=== PATIENT | female | born 1940 | race Caucasian/White ===

== ENCOUNTER → 2023-09-30 15:34 | Outpatient (REF) | payer OTHER, SELFPAY | LOC: PAVMRI 15:34 | PROVIDERS: ATTENDING PHYSICIAN Orthopaedic Surgery; FAMILY PHYSICIAN Family Medicine | DX: M54.16 Radiculopathy, lumbar region (principal) | CPT/HCPCS: 72148 ==

== ENCOUNTER 2024-07-28 20:50 | Inpatient (IN) | payer OTHER, SELFPAY ==
[2024-07-28 16:18] VITALS: BP 116/94
[2024-07-28 17:02] LABS: % Basophils 0.3 % (0-2); % Eosinophils 0.2 % (0-6); % Immature Granulocytes 0.3 % (0-0.5); % Lymphocytes 12.5 % (20.5-51.1); % Monocytes 1.4 % (1.7-9.3); % Neutrophils 85.3 % (42.2-75.2); Absolute Lymphocytes 0.7 10^3/uL (1.2-3.4); Absolute Monocytes 0.1 10^3/uL (0.1-0.6); Hematocrit 39.6 % (37.0-47.0); Hemoglobin 12.8 g/dL (12.0-16.0); Mean Corp Hgb Conc. 32.3 g/dL (33.0-37.0); Mean Corpuscular Hgb 29.8 pg (27.0-31.0); Mean Corpuscular Volume 92.3 fL (81.0-99.0); Mean Platelet Volume 10.7 fL (7.4-10.4); Nucleated Red Blood Cells % 0 %; Platelet Count 206 10^3/uL (130-400); Red Blood Cell Count 4.29 10^6/uL (4.20-5.40); Red Cell Dist. Width 14.1 % (11.5-14.5); White Blood Cell Count 5.9 10^3/uL (4.8-10.8)
[2024-07-28 17:14] LABS: ALT (SGPT) 14 U/L (0-35); AST (SGOT) 23 U/L (14-36); Albumin 4.2 g/dl (3.5-5.0); Alkaline Phosphatase 131 U/L (38-126); Blood Urea Nitrogen 34 mg/dl (7-17); Calcium 9.4 mg/dl (8.4-10.2); Carbon Dioxide 23 mmol/L (22-30); Chloride 112 mmol/L (98-107); Glucose 139 mg/dl (70-99); Potassium 5.6 mmol/L (3.5-5.1); Sodium 142 mmol/L (135-145); Total Bilirubin 0.5 mg/dl (0.2-1.3); Total Protein 6.2 g/dl (6.3-8.2); eGFR 36.87
[2024-07-28 17:24] LABS: NT-proBNP 125 pg/ml; Troponin I 0.031 ng/ml
--- NOTE | 2024-07-28 17:38 | ED.GENMED ---
History of Present Illness
General
Chief Complaint: Swelling
Source: patient
Exam Limitations: none
Time Seen by Provider: 07/28/24 17:17
History of Present Illness
History of Present Illness:
See MDM
Past History
Past History
ED Past Medical History: HTN
ED Past Surgical History: None
Social History
Tobacco: Non-smoker
Alcohol: None
Phy Exam
Physical Exam
Physical Exam:
See MDM
Scores
Heart Failure Risk
Heart Failure Risk Score: Yes
History of Stroke or TIA: No
History of intubation for respiratory distress: No
Heart rate on ED arrival >/= 110: No
SaO2 <90% on arrival on room air: Yes
HR >/=110 during 3min walk test (or too ill to perform test): Yes
ECG has acute ischemic changes: No
Urea >/=12mmol/L (BUN 33.6mg/dL): No
Serum CO2>/=35mmol/L: No
Troponin I or T elevated to [place] Level (0.4mg/dL): No
NT-proBNP >/=5,000ng/L (5,000pg/ml): No
HF Risk Score: 3
Admission Status: HIGH RISK 15.9% Consider SNF treatment or admission to hospital
Course
Orders/Labs/Results
Orders:
Orders
07/28/24 Breakfast
Cholesterol Lowering
At Your Request: Limited Participation
Does patient need a safe tray?: No
Cholesterol Lowering: Sodium, 2 Gram
07/28/24 16:25
EKG [Electrocardiogram (*1)] Urgent
Reason for Study: Shortness of Breath
07/28/24 16:26
EKG- Treatment ONCE
07/28/24 16:41
Complete Blood Count/With Diff Urgent
Comprehensive Metabolic Panel Urgent
NT-proBNP Urgent
Troponin I Urgent
07/28/24 17:38
CR Chest - 2 Views Urgent
Comment:
Reason For Exam: SOB with exertion
07/28/24 18:42
Furosemide [Lasix] 40 mg IV NOW STA
07/28/24 20:04
CT Chest PE Study Urgent
Comment:
Reason For Exam: SOB
07/28/24 20:23
Admit/Transfer Patient As Directed
Co-Sign Provider:
Level of Care: Inpatient admission
Assign to:: Telemetry
Physician / Group: dylany
Diagnosis: Soriano, Hypoxia, EMILE, questonable EARL mass to evaulate
Reason for Telemetry: Other
Other Reason for Telemetry: Soriano, questionable acute HF
Date to Stop Telemetry: 07/30/24
Time to Stop Telemetry: 11:00
Reason for Hospitalization: Soriano, Hypoxia, EMILE, questionable EARL mass to evaluate
Expected length of stay greater than two midnights?: Yes
ELOS- Estimated Length of Stay in days: 3
I certify the patient meets the requirements for IP care: Yes
07/28/24 20:26
Code Status As Directed
Resuscitation Status: Full Code
07/28/24 21:15
Hydrocodone 7.5/APAP 325 [[place] 7.5/325] 1 tablet PO BIDPRN PRN
07/28/24 21:15
HF DIETARY CONSULT Routine
HF EDUCATOR CONSULT Routine
Comment:
Activity As Directed
Activity Level: With Assistance
Intake/ Output As Directed
Frequency: Per unit guidelines
Patient Education As Directed
Type: CHF folder
Comment: give on admission. Document in Interdisciplinary Education record
Sleep Apnea Assessment by RN As Directed
Comment:
Physician Instructions:
Vital Signs As Directed
Frequency: Other
Additional Instructions:: Q12 or per unit guidelines if more frequent.
Weight As Directed
Frequency: Daily
Type of Scale: Standing Scale
Comment: Daily morning weight. If unable to stand, use balanced bed scale.
Weight As Directed
Frequency: Once
Type of Scale: Standing Scale
Comment: Upon Admission. If unable to stand, use balanced bed scale.
Pulse Ox/cont/shift [RESP] Routine
Quantity: 1
Special Instructions: Daily pulse oximetry at rest. If greater than 92% at rest also obtain pulse oximetry
while ambulating as tolerated.
DX Deep Vein Thrombosis Video Routine
07/28/24 22:00
Atorvastatin [Lipitor] 20 mg PO HS
Hydrocodone 7.5/APAP 325 [[place] 7.5/325] 1 tablet PO HS
Loperamide [Imodium] 2 mg PO HS
Pregabalin [Lyrica] 100 mg PO TID
07/29/24 06:00
Echo 2D MMode Color/Doppler IN AM
Reason for Study: heart failure
07/29/24 06:33
Cardiovascular Evaluation IN AM
TSH Reflex To Free T4 IN AM
07/29/24 08:00
Allopurinol [Zyloprim] 100 mg PO BID
Aspirin Low Dose EC [Aspir Low (Enteric Coated)] 81 mg PO DAILY
Hydrochlorothiazide [Oretic] 25 mg PO DAILY
Valsartan [Diovan] 160 mg PO DAILY
07/29/24 18:00
Enoxaparin Sodium [Lovenox] 30 mg SC QPM
07/30/24 06:00
Basic Metabolic Panel IN AM
07/30/24 11:00
DC Protocol for Telemetry ONCE
07/31/24 06:00
Basic Metabolic Panel IN AM
Abnormal Lab Results
07/28/24
16:41
MCHC 32.3 L g/dL
(33.0-37.0)
MPV 10.7 H fL
(7.4-10.4)
Absolute Lymphs (auto) 0.7 L 10^3/uL
(1.2-3.4)
Neutrophils % 85.3 H %
(42.2-75.2)
Lymphocytes % 12.5 L %
(20.5-51.1)
Monocytes % 1.4 L %
(1.7-9.3)
Potassium 5.6 H mmol/L
(3.5-5.1)
Chloride 112 H mmol/L
(98-107)
BUN 34 H mg/dl
(7-17)
Creatinine 1.4 H mg/dL
(0.6-1.0)
Glucose 139 H mg/dl
(70-99)
Alkaline Phosphatase 131 H U/L
(38-126)
Total Protein 6.2 L g/dl
(6.3-8.2)
07/28/24 16:41
07/28/24 16:41
Vital Signs
Initial and Last Documented VS:
Initial Vital Signs
Temp Pulse Resp BP Pulse Ox
98.4 F 82 18 116/94 90
07/28/24 16:18 07/28/24 16:18 07/28/24 16:18 07/28/24 16:18 07/28/24 16:18
Last Documented Vital Signs
Temp Pulse Resp BP Pulse Ox
97.5 F 66 18 141/65 95
07/29/24 11:55 07/29/24 11:55 07/29/24 11:55 07/29/24 11:55 07/29/24 11:55
MDM/Problems Addressed
Differential Diagnosis Includes:
HPI and MDM Narrative:
84-year-old female presenting for evaluation of shortness of breath with exertion. This has been going on for the past several days. She is now noticing edema in both legs. The edema used to come and go throughout the day but now it is constant.
She saw her PCP today and was sent in for evaluation. Patient denies prior cardiac history and states she has never seen a [place] before. The edema is consistent with pitting edema. Lungs appear clear but it is concerning that she is short
of breath with exertion. Will obtain basic blood work including troponin and BNP. Will obtain chest x-ray. Will ultimately discuss case with cardiology and err on the side of admitting given concern for new onset congestive heart failure.
Physical exam
General: Well appearing and non-toxic
HEENT: protecting airway
Neck: appears supple
CV: No evidence of cyanosis. Regular rate and rhythm
Resp: No accessory muscle use. Lungs clear
Abd: Non-distended
Extremities: +2 pitting edema bilateral lower extremities
Neuro: alert
Psych: Normal affect
Skin: Intact
Problems Addressed including Acute and Chronic Conditions affecting care:
1. Lower extremity pitting edema
Acuity: acute
Prognosis: stable
Details: Concern for new onset CHF. Will obtain chest x-ray and start IV Lasix
2. Hyperkalemia
Acuity: acute
Prognosis: stable
Details: Patient given IV Lasix
Updates
Patient mildly hypoxic to 88% on room air. Patient placed on 2 L nasal cannula
6:30 PM radiology called about x-ray findings. Chest x-ray concerning for possible mass in left upper lung field. This was patient. She will need a CT at some point. Regardless, there is cardiomegaly and very mild pulmonary edema. Will start IV
Lasix and admit
Patient incidentally found to have mild hyperkalemia. IV Lasix will help
Differential Diagnosis (but not limited to): New onset congestive heart failure, nephrotic syndrome
Testing considered: Urinalysis
Drug therapy (if applicable): OTC meds, please see d/c instruction regarding Rx drugs
Amount and/or Complexity of Data Reviewed
Clinical info obtained from: Patient
External data reviewed: N/A
Labs I independently reviewed (but not limited to): BNP and troponin normal
Radiology: X-ray independently reviewed: Chest x-ray consistent with cardiomegaly and concern for very mild pulm edema
Pulse Ox: hypoxic
EKG independently reviewed: Sinus rhythm, normal axis, no STEMI
Intermediate Designer: Sinus rhythm
Critical Care: the high probability of a clinically significant, sudden or life threatening deterioration of the cardiovascular system(s) required my full and direct attention, intervention and personal management. The aggregate critical care time
was 33 minutes. This time is in addition to time spent performing reported procedures but includes the following:
[x] Data Review and interpretation
[x] Patient assessment and monitoring of vital signs
[x] Documentation
[x] Medication orders and management
Risk of Complication:
Social Determinants of health: Good social support
Discussed with other providers: Hospitalist
Escalation of Care includes Admit/Obs: Given exertional dyspnea, will start IV Lasix and admit
Occasional wrong word or 'sound a like' substitutions may have occurred due to the inherent limitations of voice recognition software. Read the chart carefully and recognize, using context, where substitutions have occurred.
*Critical Care Note
Total Time (30-74mins, 75-104mins- exclusive of procedures): 33 min
ED Attending Note
-
Portions of this chart may have been created with voice recognition software.� Occasional wrong word or��sound alike� substitutions may have occurred due to the inherent limitations of voice recognition software.
Discharge Plan
Departure
Patient Disposition: Admit
Date of Disposition: 07/28/24
Time of Disposition: 18:42
Admit to: Telemetry
Presentation/result/management discussed w/ accepting MD/DO: Hospitalist
Discharge Problem:
SORIANO (dyspnea on exertion), Cardiomegaly, Acute hyperkalemia
Interventions
Interventions:
*Risk Screen - Suicide Last Done: 07/28/24 16:18
*General Assessment Last Done: 07/28/24 16:18
*Neglect/Abuse Screening Last Done: 07/28/24 21:21
*ED- Fall Risk Assessment Last Done: 07/28/24 21:21
*ED COVID-19 Vaccine History Last Done: 07/28/24 21:38
*Nursing Disposition Last Done: 07/28/24 21:21
ED- Cardiac Assessment Last Done: 07/28/24 18:10
Discharge Date and Time
Discharge Date/Time: 07/28/24 21:22
[2024-07-28 17:58] VITALS: BP 133/50
[2024-07-28 17:59] VITALS: BP 133/50
[2024-07-28] MEDS: LASIX 40 MG IV (19:14)
[2024-07-28 19:15] VITALS: BP 136/51
--- NOTE | 2024-07-28 20:11 | HPS.HSE ---
Addendum entered and electronically signed by Zachary Ceballos MD 07/28/24 21:26:
Hold of CTC with PE protocol due to EMILE
- await Pul and Card eval in AM
- Hold of contrast study for now
Original Note:
Family Physician
-
Family Physician: Haven Lr DO
Chief Complaint
-
swelling of feet, Lt hand and numbness to R fingers
SoB with exertion
History of Present Illness
HPI
84F No prior cardiac history. Has never seen cards beforeseen at ER:
- SOB with exertion for a few days.
- reports swelling of feet, Lt hand and numbness to R fingers
- Noted mild hypoxia at ER requires 2L NC O2
- CXR shows cardiomegaly and rads said possible EARL mass
Medical History
Past Medical History
Past Medical History: Reports None
Past Surgical History: Reports None
Social History
Tobacco: Non-smoker
Alcohol: None
Drug: None
Family History
Family History: Not pertinent
Allergies / Home Medications
Allergies reflects when Allergies were last updated in [facility].
Home Medications with original date entered in [facility]
Allergy/Medication List:
Allergies
Allergy/AdvReac Type Severity Reaction Status Date / Time
codeine Allergy Unknown Verified 07/28/24 16:24
Home Medications
allopurinol 100 mg tablet 100 mg PO BID 07/28/24
aspirin 81 mg tablet,delayed release 81 mg PO DAILY 07/28/24
atorvastatin 20 mg tablet 20 mg PO HS 07/28/24
famotidine 20 mg tablet 20 mg PO DAILY 07/28/24
hydrochlorothiazide 25 mg tablet 25 mg PO DAILY 07/28/24
hydrocodone 7.5 mg-acetaminophen 325 mg tablet 1 tab PO BIDPRN PRN severe pain 07/28/24
hydrocodone 7.5 mg-acetaminophen 325 mg tablet 1 tab PO HS 07/28/24
loperamide 2 mg capsule 2 mg PO HS 07/28/24
pregabalin 100 mg capsule 100 mg PO TID 07/28/24
valsartan 160 mg tablet 160 mg PO DAILY 07/28/24
Review of Systems
-
Constitutional: Reports No Symptoms
EENT: Reports No Symptoms
Respiratory: Reports See HPI and Trouble Breathing (with exertion )
Cardiac: Reports See HPI and Other (swelling of extremities )
Abdomen/GI: Reports No Symptoms
: Reports No Symptoms
Musculoskeletal: Reports No Symptoms
Skin: Reports No Symptoms
Neurological: Reports No Symptoms
Endocrine: Reports No Symptoms
Hematologic/Lymphatic: Reports No Symptoms
Psych: Reports No Symptoms
Physical Exam
Vital Signs
Vital Signs
Temp Pulse Resp BP Pulse Ox
98.4 F 65 17 136/51 92
07/28/24 16:18 07/28/24 19:30 07/28/24 19:30 07/28/24 19:15 07/28/24 19:30
Physical Exam
General: Well Developed, Well Nourished and No Apparent Distress
HEENT: NormoCephalic, Moist mucous membranes and Atraumatic
Respiratory: Clear
Cardiac: S1/S2 and Regular Rhythm; No Murmur or Rub
GI: Soft, Non Tender, Non Distended and Normal Bowel Sounds; No Organomegaly
Rectal: Deferred by Provider
Musculoskeletal: No Clubbing, No Cyanosis, Edema, Left Lower Extremity and Edema, Right Lower Extremity
Skin: No Rash
Neuro: Nonfocal/grossly intact
Laboratory Results
-
07/28/24 16:41
07/28/24 16:41
Laboratory Results
Total Bilirubin 0.5 mg/dl (0.2-1.3) 07/28/24 16:41
AST 23 U/L (14-36) 07/28/24 16:41
ALT 14 U/L (0-35) 07/28/24 16:41
Alkaline Phosphatase 131 U/L (38-126) H 07/28/24 16:41
Troponin I 0.031 ng/ml 07/28/24 16:41
Data Reviewed
-
Diagnostic Radiology: Report Reviewed by me
Medical Tests (Nuc Med, Echo, EKG etc): Report Reviewed by me
Lab Data: Labs Reviewed by me
Impression/Plan
-
Selected Entries
07/28/24
16:18 07/28/24
18:07
Temp 98.4 F
Pulse 82
Resp Rate 18
Blood pressure 116/94
SaO2 90 93
Oxygen Mode of Delivery Room air
Nasal Cannula flow liters per minute 2
Labs
07/28/24
16:41
WBC 5.9
Hgb 12.8
Plt Count 206
Potassium 5.6 H
Chloride 112 H
Carbon Dioxide 23
BUN 34 H
eGFR 36.87
Cr 1.4
Alkaline Phosphatase 131 H
Troponin I 0.031
Bcx-N-Ilsxoedohyg Pept 125
CXR
- Large retrocardiac density most likely representing a hiatal hernia.
- Heart and pulmonary vascularity at least top normal.
- Vague opacity in the left apex most likely representing incidental tortuosity of the great vessels.
- Left apical mass cannot be excluded. Chest CT with IV contrast could be obtained.
CTC with PE protocol pending
EKG
NORMAL SINUS RHYTHM
LOW VOLTAGE QRS
BORDERLINE ECG
NO PREVIOUS ECGS AVAILABLE
NO PRIOR hospitalist admission:
ASSESSMENT & PLAN
Expanded volume with [place] and asso. Hypoxia require 2 L NC O2
Unremarkable proBNP
DDX: symptomatic hypervolemia, low index of suspicion for PE, Unestablished BRAD,, occult Lung tumor, questionable acute HF
No prior cardiac HX
Never seen cards before.
CXR shows cardiomegaly
Of note; Has swet tooth. Gained 20 lbs over last couple of weeks
- S/p IV Lasix 40 at ER
- No further IV Lasix il eval by Card and Pu
- daily Wt
- daily BMP
- ECHO in AM
- CTC with PE protocol
- OP sleep study
- CBC Card and Pul consult
Presumed EMILE
Hyperkalemia
- observe BMP in AM s/p IV lasix
Questionable EARL mass on CXR
- radiologist suggest CTC with IV contrast
- CTC with PE protocol to eval for acute PE for now
HLD
- on Atorvastatin
Benign HTN
- c/w MECHANICAL MAINTENANCE SUPERVISOR HCTZ and Valsartan
TIA ?
- on MECHANICAL MAINTENANCE SUPERVISOR ASA
HX Gout
- stable
- on Allopurinol
HC narcotic dependent chr cervical back pain
HX Fibt
DVT Px: LMWH
Full code
IP TLM
[2024-07-28 21:25] VITALS: BMI 31.0
[2024-07-28 21:30] VITALS: BP 153/78; BMI 31.0
--- NOTE | 2024-07-28 21:35 | PTCARENOTE ---
Pt arrived from the ED via stretcher. Patient AAOx3, VSS. on 2L O2 NC. Walked into the room with assistance. Oriented to the room. Updated on plan of care. Call carlson is within reach.
[2024-07-28] MEDS: LYRICA 100 MG PO (22:12)
[2024-07-28] MEDS: LIPITOR 20 MG PO (22:12)
[2024-07-28] MEDS: IMODIUM 2 MG PO (22:12)
[2024-07-28] MEDS: NORCO 7.5/325 1 TABLET PO (22:13)
[2024-07-28 23:30] VITALS: BP 145/65
[2024-07-29 04:34] VITALS: BP 146/71; BMI 30.8
[2024-07-29 07:30] VITALS: BP 154/73
[2024-07-29] MEDS: LYRICA 100 MG PO ×3 (07:58→21:12)
[2024-07-29] MEDS: ASPIR LOW (ENTERIC COATED) 81 MG PO (07:58)
[2024-07-29] MEDS: DIOVAN 160 MG PO (07:58)
[2024-07-29] MEDS: ORETIC 25 MG PO (07:58)
[2024-07-29] MEDS: ZYLOPRIM 100 MG PO ×2 (07:58→19:34)
[2024-07-29] MEDS: FLUSH (NSS) 1 FLUSH IV (07:59)
--- NOTE | 2024-07-29 08:32 | W.PN.HOSP.TC ---
Today's Communication/Plan
-
Hyperkalemia combo. Echocardiogram. Cardio and pulmonary eval.
Assessment / Plan
Assessment / Plan
Physical exam:
General: Acutely ill
HEENT: Normocephalic, Atraumatic and Moist Mucous Membranes
Respiratory: Decreased breath sounds in the bases but relatively clear to auscultation bilateral; Negative Wheezes or Rhonchi
Cardiac: Regular Rhythm and S1/S2
GI: Soft, Nontender and Nondistended
Musculoskeletal: No Clubbing, No Cyanosis. Bilateral lower extremity edema
Neuro: Awake, Alert and Oriented, no neurological deficit
Psych: Calm
A/P:
Probable acute diastolic congestive heart failure:
Given IV Lasix last evening but holding on further diuresis until clarification
BNP not that elevated
Will re-dose as needed
Plan for echocardiogram
Cardiology consult
Hyperkalemia:
Stat EKG
Stat insulin and D50
Stat but bicarb
Stat calcium gluconate
Stat DuoNeb
Stat Lokelma
Might consider IV furosemide down the road
Stop valsartan
Repeat potassium later today
Abnormal chest x-ray:
Possible left lung apical mass, large retrocardiac density probably hiatal hernia
Initially there were noted to a CT scan of the chest but held due to renal function and probable VQ scan but also had pulmonary consulted and pending evaluation
CKD:
Unclear if EMILE component
Avoid nephrotoxic
Monitor renal function
Hypertension:
Continue home antihypertensives with restrictions due to electrolytes abnormal
Hyperlipidemia:
Continue statins
Chronic back pain:
Continue pain medications
DVT prophylaxis:
Lovenox SQ
CODE STATUS:
Full code
Total time spent on today's encounter was 52 minutes which included time spent in counseling the patient/family regarding diagnosis and treatment plan as listed above, goals of care, and symptom management. Case was discussed with nursing staff,
specialists, and care coordinators/case management. All labs and imaging personally reviewed by me. Remainder the time spent in detailed review of previous records, lab data, imaging, and other medical provider documentation.
Anticipated Discharge: > 48 hours
Subjective/Interval History
-
Date of Service: July 29, 2024
Patient still having some shortness of breath on exertion. She has peripheral edema. No chest pain.
Objective Data
-
Labs:
Laboratory Results
07/29/24
06:33
Sodium Pending
Potassium Pending
Chloride Pending
Carbon Dioxide Pending
BUN Pending
Creatinine Pending
Glucose Pending
Calcium Pending
Total Bilirubin Pending
AST Pending
ALT Pending
Alkaline Phosphatase Pending
Vital Signs:
Vital Signs
Temp Pulse Resp BP Pulse Ox
98 F 64 20 154/73 95
07/29/24 07:30 07/29/24 07:30 07/29/24 07:30 07/29/24 07:30 07/29/24 07:30
I&O
07/28/24 07/29/24 07/30/24
06:59 06:59 06:59
Intake Total 560 / 560
Balance 560 / 560
--- NOTE | 2024-07-29 09:10 | CON.CAR ---
Addendum entered and electronically signed by Gil Villeda MD 07/29/24 13:44:
I saw and examined the patient.
The HEALTH CARE FACILITIES INSPECTOR's note was reviewed and I agree with the note.
Comment: 84 yo female with HTN, HLD, gout and chronic back pain, who presents to the ER with c/o LE edema, left hand edema and TSANG.
- IV diuresis today; possibly tomorrow pending exam she does have 1-2+ b/l LE edema
- holding valsartan for hyperkalemia --> had tolerated this in past could consider restart as outpatient
Original Note:
Consultation
Consultation Request
Date/Time Consultation Requested: 07/28/24 10p
Date/Time Consultation Performed: 07/29/24 8:15a
Requesting Provider: Dr. Ceballos
Performing Provider: HECTOR Fuentes for Dr. Villeda
Reason for Consultation: tsang, edema
Medical History
-
Chief Complaint: edema
History of Present Illness:
Mrs. Ramos is an 84 yo female with HTN, HLD, gout and chronic back pain, who presents to the ER with c/o LE edema, left hand edema and TSANG. Symptoms have been occurring for 'months' but left hand and LE edema worsened for 3 days. She reports
feeling exhausted on Thursday after preparing a dinner libertarian for her family (sisters and spouses, 10 people). She denied chest pain, palpitations or SOB. She does admit to TSANG when walking up an incline for the last 6 months. She is admitted to
the hospitalist service and we are consulted for edema and TSANG. She reports compliance with her outpatient meds, which include HCTZ.
Past Medical History
Past Medical History: Other (as above)
Past Surgical History: Orthopedic (left rotator cuff repair, now receives cortisone injections every 3 months)
Social History
Tobacco: Non-Smoker
Alcohol: Occasional
Personal:
Living: With Family
Family History
Family History: Reviewed & Not Pertinent
Allergies / Home Medications
Allergy/AdvReac Type Severity Reaction Status Date / Time
codeine Allergy Unknown Verified 07/28/24 16:24
�Medication �Instructions �Recorded �Confirmed �Type
allopurinol 100 mg tablet 100 mg PO BID Gout 07/28/24 07/28/24 History
aspirin 81 mg tablet,delayed 81 mg PO DAILY Blood Clot 07/28/24 07/28/24 History
release Prevention/Tx
atorvastatin 20 mg tablet 20 mg PO HS High Cholesterol 07/28/24 07/28/24 History
famotidine 20 mg tablet 20 mg PO DAILY Gastrointestinal 07/28/24 07/28/24 History
Issue
hydrochlorothiazide 25 mg tablet 25 mg PO DAILY Blood Pressure 07/28/24 07/28/24 History
hydrocodone 7.5 mg-acetaminophen 1 tab PO BIDPRN PRN severe pain 07/28/24 07/28/24 History
325 mg tablet
hydrocodone 7.5 mg-acetaminophen 1 tab PO HS Pain 07/28/24 07/28/24 History
325 mg tablet
loperamide 2 mg capsule 2 mg PO HS Diarrhea 07/28/24 07/28/24 History
pregabalin 100 mg capsule 100 mg PO TID Neurological 07/28/24 07/28/24 History
Condition
valsartan 160 mg tablet 160 mg PO DAILY Blood Pressure 07/28/24 07/28/24 History
Review of Systems
-
History Source: Patient
All other systems: Negative unless noted
Physical Exam
Vital Signs
Temp Pulse Resp BP Pulse Ox
98 F 64 20 154/73 95
07/29/24 07:30 07/29/24 07:30 07/29/24 07:30 07/29/24 07:30 07/29/24 07:30
Lab Results
07/28/24 16:41
Troponin I 0.031 ng/ml 07/28/24 16:41
Iec-Y-Ndpnwaklwrm Pept 125 pg/ml 07/28/24 16:41
Physical Exam
General: Well Developed, Well Nourished and No Apparent Distress
HEENT: Normocephalic, Anicteric and Moist Mucous Membranes
Respiratory: Clear and Non Labored Respirations
Cardiac: S1/S2, Regular Rhythm and Peripheral Edema (trace b/l LE)
Breast: Deferred by me
GI: Soft, Non Tender, Non Distended and Normal Bowel Sounds
Rectal: Deferred by Provider
Genito-urinary: Clear Urine
Musculoskeletal: No Clubbing, No Cyanosis and Other (no swelling to left hand noted)
Skin: Warm and Dry
Neuro: AO x 3
Hematologic/Lymphatic: No Lymphadenopathy
Psych: Calm
Impression / Plan
-
SOB/TSANG - occurring for 'months'.
- associated LE edema, worse recently.
- received IV Lasix in the ER and feels good now.
- no overt CHF on CXR and proBNP unremarkable at 125.
- EKG w/o ischemia, troponin 0.031.
- check echo.
- Chest CT pending.
- pulmonary consulted, questionable left apex mass.
HTN - stable on meds, continue.
HLD - stable on Lipitor, continue.
- lipids pending this am.
Back pain - chronic, on meds.
Data Reviewed
-
EKG: Tracing Personally Visualized and interpreted (NSR 77 bpm)
Radiology: Report Reviewed by me (CXR: opacity in left apex - tortuosity of the great vessels, but mass cannot be excluded. CT chest pending.)
Labs: Labs Reviewed by me
Old Records: Reviewed
[2024-07-29 09:17] LABS: ALT (SGPT) 12 U/L (0-35); AST (SGOT) 21 U/L (14-36); Albumin 3.8 g/dl (3.5-5.0); Alkaline Phosphatase 108 U/L (38-126); Blood Urea Nitrogen 43 mg/dl (7-17); Calcium 9.4 mg/dl (8.4-10.2); Carbon Dioxide 25 mmol/L (22-30); Chloride 109 mmol/L (98-107); Direct Bilirubin 0.2 mg/dl (0.0-0.4); Estimated Creatinine Clearance 35 ml/min; Glucose 133 mg/dl (70-99); HDL Cholesterol 59 mg/dl; LDL Cholesterol, Calculated 44 mg/dl; Potassium 6.1 mmol/L (3.5-5.1); Sodium 140 mmol/L (135-145); Total Bilirubin 0.5 mg/dl (0.2-1.3); Total Cholesterol 114 mg/dl (50-199); Total Protein 5.7 g/dl (6.3-8.2); Triglyceride 57 mg/dl (10-149); Very Low Density Lipoprotein 11 mg/dl (0-30)
[2024-07-29 10:06] LABS: TSH Reflex To Free T4 0.45 uIU/ml (0.47-4.68)
[2024-07-29 10:34] LABS: Free T4 0.81 ng/dl (0.78-2.19)
[2024-07-29] MEDS: LOKELMA 10 GRAM PO (10:46)
[2024-07-29 11:55] VITALS: BP 141/65
--- NOTE | 2024-07-29 12:00 | CON.PUL ---
Consultation
Consultation Request
Date/Time Consultation Requested: 07/29/2024
Date/Time Consultation Performed: 07/29/2024
Requesting Provider: Dr. Long
Performing Provider: Dr. Eran Hurtado
Reason for Consultation: Hypoxemic respiratory failure
Medical History
-
History of Present Illness:
84-year-old man without significant cardiac history, reports history of gout, hyperlipidemia, GERD, hypertension evaluated in the emergency room for shortness of breath for the last several days. Does report bilateral feet swelling, and some
numbness under his fingers. He was noted to be hypoxic in the emergency room requiring 2 L.
Chest x-ray showed possible increased vascular markings, cardiomegaly and possible left upper lung opacity.
We were consulted for evaluation of abnormal chest x-ray.
Patient does endorses chronic shortness of breath for months. Mainly with exertion inclines and stairs.
Past Medical History
Past Medical History: Other (See assessment and plan)
Social History
Tobacco: Non-smoker
Alcohol: None
Drug: None
Family History
Family History: Reviewed & Not Pertinent
Allergies / Home Medications
Allergies
Allergy/AdvReac Type Severity Reaction Status Date / Time
codeine Allergy Unknown Verified 07/28/24 16:24
Home Medications
�Medication �Instructions �Recorded �Confirmed �Last Taken �Type
allopurinol 100 mg tablet 100 mg PO BID Gout 07/28/24 07/28/24 07/28/24 History
aspirin 81 mg tablet,delayed 81 mg PO DAILY Blood Clot 07/28/24 07/28/24 07/28/24 History
release Prevention/Tx
atorvastatin 20 mg tablet 20 mg PO HS High Cholesterol 07/28/24 07/28/24 07/27/24 History
famotidine 20 mg tablet 20 mg PO DAILY Gastrointestinal 07/28/24 07/28/24 07/28/24 History
Issue
hydrochlorothiazide 25 mg tablet 25 mg PO DAILY Blood Pressure 07/28/24 07/28/24 07/28/24 History
hydrocodone 7.5 mg-acetaminophen 1 tab PO BIDPRN PRN severe pain 07/28/24 07/28/24 07/28/24 History
325 mg tablet
hydrocodone 7.5 mg-acetaminophen 1 tab PO HS Pain 07/28/24 07/28/24 07/27/24 History
325 mg tablet
loperamide 2 mg capsule 2 mg PO HS Diarrhea 07/28/24 07/28/24 07/27/24 History
pregabalin 100 mg capsule 100 mg PO TID Neurological 07/28/24 07/28/24 07/28/24 History
Condition
valsartan 160 mg tablet 160 mg PO DAILY Blood Pressure 07/28/24 07/28/24 07/28/24 History
Review of Systems
-
History Source: Patient
All other systems: Negative unless noted
Vitals / Labs / Diagnostic Testing
Vital Signs
Temp Pulse Resp BP Pulse Ox
98 F 64 20 154/73 95
07/29/24 07:30 07/29/24 07:30 07/29/24 07:30 07/29/24 07:30 07/29/24 07:30
Lab Data
07/28/24 16:41
Diagnostic Testing:
Physical Exam
-
HEENT: Normocephalic
Cardiovascular: S1/S2
Respiratory: Clear and Non-Labored Respirations
GI: Soft and Non Distended
Neurology: Awake, AO x 3 and No Motor Deficits
Skin: Warm
General: Comfortable
Assessment
-
84-year-old woman who was admitted with shortness of breath, mild hypoxemia, bipedal edema. Did receive some Lasix in the emergency room. Chest x-ray with a possible left upper lobe opacity/mass. Has acute kidney injury with hyperkalemia.
We were consulted for evaluation of abnormal chest x-ray.
Abnormal chest x-ray: Possible left upper lobe lung mass
Chest x-ray also has a retrocardiac infiltrate likely hiatal hernia.
Acute hypoxemic respiratory insufficiency
Chronic shortness of breath for months
?Possible heart failure unknown type acute
Weight gain/edema/chest x-ray with ?cardiomegaly. No significant heart failure.
Negative cardiac troponin
Normal proBNP
Hyperkalemia
Conditions present prior admission:
Hypertension
Hyperlipidemia
Gout
Chronic back pain
Assessment and plan:
Abnormal chest x-ray: Not entirely clear whether there is a left apical abnormality with this portable view.
CT chest with contrast on hold due to acute kidney injury.
Start With AP and lateral chest x-ray once potassium is corrected. Can be done in early childhood education worker. Order has been placed.
If creatinine normalizes then we can consider CT of the chest with IV contrast at that time depending on chest x-ray AP and lateral.
-
Respiratory insufficiency-2 L nasal cannula-unclear etiology-did receive a dose of Lasix and she feels better.
Cardiology correspondence reviewed-not strongly suspecting heart failure.
Echocardiogram is pending
Rule out embolic event:
VQ scan has been ordered-pending.
Will obtain D-dimer
Obtain lower extremity Dopplers
-
Hyperkalemia management per primary team.
-
Will follow

Data reviewed:
CXR 07/28/2024
- Large retrocardiac density most likely representing a hiatal hernia.
- Heart and pulmonary vascularity at least top normal.
- Vague opacity in the left apex most likely representing incidental tortuosity of the great vessels.
- Left apical mass cannot be excluded. Chest CT with IV contrast could be obtained.
EKG
NORMAL SINUS RHYTHM
LOW VOLTAGE QRS
BORDERLINE ECG
NO PREVIOUS ECGS AVAILABLE
[2024-07-29 12:03] LABS: Glucose - Point of Care 108 mg/dl (70-99)
[2024-07-29] MEDS: CALCIUM GLUCONATE 1000 MG IV (12:13)
[2024-07-29] MEDS: NOVOLIN R 0.05 UNITS IV (12:17)
[2024-07-29] MEDS: FLUSH (NSS) 2 FLUSH IV ×2 (12:19→16:40)
[2024-07-29] MEDS: DEXTROSE 50% SYRINGE 25 GRAMS IV (12:19)
[2024-07-29] MEDS: VENTOLIN NEBULES 10 MG INH (12:26)
[2024-07-29 13:24] LABS: Glucose - Point of Care 139 mg/dl (70-99)
[2024-07-29 14:24] LABS: Glucose - Point of Care 175 mg/dl (70-99)
[2024-07-29 14:26] LABS: D-Dimer 1.12 ug/mlFEU (0.00-0.50)
[2024-07-29 14:29] LABS: Blood Urea Nitrogen 45 mg/dl (7-17); Calcium 9.8 mg/dl (8.4-10.2); Carbon Dioxide 22 mmol/L (22-30); Chloride 107 mmol/L (98-107); Estimated Creatinine Clearance 33 ml/min; Glucose 180 mg/dl (70-99); Potassium 4.6 mmol/L (3.5-5.1); Sodium 140 mmol/L (135-145); eGFR 36.87
[2024-07-29 15:53] VITALS: BP 140/62
[2024-07-29 16:23] LABS: Glucose - Point of Care 124 mg/dl (70-99)
[2024-07-29] MEDS: LASIX 40 MG IV (16:39)
[2024-07-29 18:21] LABS: Glucose - Point of Care 156 mg/dl (70-99)
[2024-07-29] MEDS: LOVENOX 30 MG SC (18:45)
[2024-07-29 19:26] VITALS: BP 120/49
[2024-07-29] MEDS: IMODIUM 2 MG PO (19:34)
[2024-07-29] MEDS: LIPITOR 20 MG PO (19:34)
[2024-07-29] MEDS: NORCO 7.5/325 1 TABLET PO (21:12)
[2024-07-29 23:39] VITALS: BP 125/53
[2024-07-30] VITALS (7 sets, daily range): BP systolic 130–148; BP diastolic 58–71; PULSE 70; O2SAT 93; BMI 30.4
[2024-07-30 07:02] LABS: Blood Urea Nitrogen 55 mg/dl (7-17); Carbon Dioxide 25 mmol/L (22-30); Chloride 107 mmol/L (98-107); Estimated Creatinine Clearance 32 ml/min; Glucose 114 mg/dl (70-99); Potassium 5.6 mmol/L (3.5-5.1); Sodium 142 mmol/L (135-145); eGFR 36.87
--- NOTE | 2024-07-30 07:24 | W.PN.HOSP.TC ---
Today's Communication/Plan
-
Lokelma. Repeat potassium
Assessment / Plan
Assessment / Plan
Physical exam:
General: Acutely ill
HEENT: Normocephalic, Atraumatic and Moist Mucous Membranes
Respiratory: Decreased breath sounds in the bases but relatively clear to auscultation bilateral; Negative Wheezes or Rhonchi
Cardiac: Regular Rhythm and S1/S2
GI: Soft, Nontender and Nondistended
Musculoskeletal: No Clubbing, No Cyanosis. Bilateral lower extremity edema
Neuro: Awake, Alert and Oriented, no neurological deficit
Psych: Calm
A/P:
Probable acute diastolic congestive heart failure:
Given IV Lasix evening upon admission and yesterday but holding on further diuresis until clarification
BNP not that elevated
Will re-dose as needed
Reviewed echocardiogram
Cardiology consult appreciated
Hyperkalemia:
After combo given potassium went down to normal yesterday and up again today
Repeat Lokelma
Continue holding ARB
Repeat potassium in a.m.
Abnormal chest x-ray:
Possible left lung apical mass, large retrocardiac density probably hiatal hernia
Initially there were noted to a CT scan of the chest but held due to renal function
VQ scan low probability of PE
Pulmonary consult appreciated
CKD:
Unclear if EMILE component
Avoid nephrotoxic
Monitor renal function
Hypertension:
Continue home antihypertensives with restrictions due to electrolytes abnormal
Hyperlipidemia:
Continue statins
Chronic back pain:
Continue pain medications
DVT prophylaxis:
Lovenox SQ
CODE STATUS:
Full code
Total time spent on today's encounter was 52 minutes which included time spent in counseling the patient/family regarding diagnosis and treatment plan as listed above, goals of care, and symptom management. Case was discussed with nursing staff,
specialists, and care coordinators/case management. All labs and imaging personally reviewed by me. Remainder the time spent in detailed review of previous records, lab data, imaging, and other medical provider documentation.
Anticipated Discharge: 24 - 48 hours
Subjective/Interval History
-
Date of Service: July 30, 2024
Patient has less dyspnea on exertion. No chest pain. Afebrile
Objective Data
-
Labs:
Laboratory Results
07/30/24
05:53
Sodium 142
Potassium 5.6 H
Chloride 107
Carbon Dioxide 25
BUN 55 H
Creatinine 1.4 H
Glucose 114 H
Calcium 10.0
Vital Signs:
Vital Signs
Temp Pulse Resp BP Pulse Ox
98.1 F 67 16 130/60 95
07/30/24 03:12 07/30/24 03:12 07/30/24 03:12 07/30/24 03:12 07/30/24 03:12
I&O
07/29/24 07/30/24 07/31/24
06:59 06:59 06:59
Intake Total 560 / 560 1520 / 1520
Balance 560 / 560 1520 / 1520
[2024-07-30] MEDS: ZYLOPRIM 100 MG PO ×2 (08:28→20:32)
[2024-07-30] MEDS: ASPIR LOW (ENTERIC COATED) 81 MG PO (08:29)
[2024-07-30] MEDS: ORETIC 25 MG PO (08:29)
[2024-07-30] MEDS: LOKELMA 10 GRAM PO (08:29)
[2024-07-30] MEDS: LYRICA 100 MG PO ×3 (08:29→21:22)
--- NOTE | 2024-07-30 12:21 | W.PN.CD ---
Today's Communication / Plan
-
Await CT report
Repeat EKG in AM
Impression / Plan
-
Abnormal EKG
- 2nd EKG showed new T inversion but I am suspicious of lead placement error => repeat
- Repeat EKG in AM
Hyperkalemia
- Per hospitalist
- Off valsartan
SOB/SORIANO
- Not convinced this is heart failure
Abnormal CXR
- CT report is pending, obtained on 07/28/2024
Mild to moderate AR
HTN
HLD
Back pain
Subjective
No complaints
Data:
Echo :
Normal LV size and function with no regional wall motion abnormalities.
LVEF is 55-60% by visual estimation.
No LVH. Stage I diastolic dysfunction suggestive of abnormal relaxation.
Normal right ventricular size and function.
Mild to moderate aortic regurgitation.
Estimated pulmonary artery pressure of 23 mmHg. Assuming a right atrial
pressure of 3 mmHg.
No prior study available for comparison.
Physical Exam
Vital Signs/Labs
Vital Signs
Temp Pulse Resp BP Pulse Ox
97.2 F 67 16 143/63 95
07/30/24 11:41 07/30/24 11:41 07/30/24 11:41 07/30/24 11:41 07/30/24 11:41
07/29/24 07/30/24 07/31/24
06:59 06:59 06:59
Actual Weight 86.409 kg 85.304 kg
07/28/24 16:41
07/30/24 05:53
Triglycerides 57 mg/dl (10-149) 07/29/24 06:33
LDL Cholesterol, Calc 44 mg/dl 07/29/24 06:33
VLDL Cholesterol, Calc 11 mg/dl (0-30) 07/29/24 06:33
HDL Cholesterol 59 mg/dl 07/29/24 06:33
Free T4 0.81 ng/dl (0.78-2.19) 07/29/24 06:33
07/28/24
16:41
Kxx-[id number] Pept 125
LAB Results
07/28/24
16:41
Troponin I 0.031
Physical Exam
Constitutional: No acute distress
Cardiovascular: Rhythm & rate is regular and Pedal edema is absent (tr edema at most)
Respiratory: Respiratory effort normal and Crackles Absent
GI: Soft
Neuro/Psych: Alert
Data Reviewed
-
Date of Service: July 30, 2024
--- NOTE | 2024-07-30 13:40 | CM ---
Addendum entered by Zaria Gomez 07/30/24 13:54:
CM consulted to assess medication fall for Farxiga or Jardiance 10 mg.
Amb orders utilized for estimate cost for rx coverage and cost
Farxiga- $143.90 (30 day supply), $401.03 (90 day supply)
Jardiance- $151.03 (30 day supply), $420.90 (90 day supply)
Updated ordering physician via TT
Original Note:
Patient seen bedside w/ spouse. Initial assessment completed. Patient admitted for swelling of feet, Lt hand and numbness to R fingers and
SOB with exertion.
Patient reports that she resides w/ spouse in single story home- 5 steps to enter. Patient is independent w/ ambulating, no device required. Independent w/ ADLs. Has a shower w/ 2 built in shower seats and has additional shower chair and tub grab
bar. Patient had skilled rehab in the past in [place]. No HC hx.
Address, points of contact and insurance verified
PCP: Haven Lr
Pharmacy: [facility]
Therapy assessed patient and determined no needs likely
Plan: Anticipate home; no needs
--- NOTE | 2024-07-30 16:30 | W.PN.PUL3 ---
Today's Communication / Plan
-
Awaiting lower extremity duplex
Outpatient cardiology follow-up
Outpatient pulmonary follow-up for full PFTs
She has an intrathoracic stomach and colon, and this could be contributing to her chronic shortness of breath. Recommend general surgery consult to discuss treatment options
Pulmonary service will continue to briefly follow along
Assessment
-
84-year-old woman who was admitted with shortness of breath, mild hypoxemia, bipedal edema. Did receive some Lasix in the emergency room. Chest x-ray with a possible left upper lobe opacity/mass. Has acute kidney injury with hyperkalemia.
We were consulted for evaluation of abnormal chest x-ray.
Abnormal chest x-ray: Possible left upper lobe lung mass
Chest x-ray also has a retrocardiac infiltrate likely hiatal hernia.
Acute hypoxemic respiratory insufficiency - now resolved s/p lasix
Chronic shortness of breath for months
Suspected acute HFpEF exacerbation
EMILE with hyperkalemia
Chronic cough likely due to upper airway cough syndrome - can be discussed as an outpatient
Conditions present prior admission:
Hypertension
Hyperlipidemia
Gout
Chronic back pain
Assessment and plan:
Abnormal chest x-ray: Not entirely clear whether there is a left apical abnormality with this portable view.
Ok to obtain CT chest without contrast. No need to check CTA chest given low probability V/Q scan
- CT chest performed and upon my review she has an azygous lobe; and there is no mass in her left upper lobe. And she has subpleural reticular markings on her medial right lower lobe as as well the medial right upper lobe with scattered
groundglass attenuation mainly on her right lung. She has a very large hiatal hernia and this could very well be causing shortness of breath for her as she has stomach and colon in her chest cavity. Would recommend general surgery consult to
discuss treatment options for this large hiatal hernia with intrathoracic stomach and colon
- Follow-up official CT chest imaging results
-
She is no longer on any oxygen and is breathing comfortably on room air
Saturating 96%, hence no need to check for home O2
Seems like ever since she got the Lasix in the ER she has been feeling much better -this does make left-sided heart failure much more likely. Her RV did appear normal in size and function on echo
Cardiology correspondence reviewed-not strongly suspecting heart failure.
Echocardiogram performed on 07/29/2024 showing stage I diastolic dysfunction with normal RV size and function, mild as moderate AI with normal PASP and normal LV size and function with no regional WMA. LVEF 55 to 60%
- It does appear clinically that she was having CHF upon admission, however proBNP was 125 and she has a BMI of 30 so unclear if this is a falsely low number or if it is accurate
- Would still would be prudent and have her see cardiology as an outpatient
VQ scan shows no scintigraphic evidence for pulmonary embolism with normal homogenous ventilation and perfusion to the lungs. There were no significant unmatched perfusion defects.
LE duplex is pending - hopefully this can be done by tomorrow so that it is not holding up her discharge
-
Hyperkalemia management per primary team (5.6 on 07/30/2024
-
I believe that she will be ready for discharge by tomorrow. I will arrange for outpatient office follow-up with me. She also has outpatient cardiology follow-up on 08/18/2024 with HECTOR Fuentes, at 10:40 AM.
Will continue to briefly follow along

Data reviewed:
CXR 07/28/2024
- Large retrocardiac density most likely representing a hiatal hernia.
- Heart and pulmonary vascularity at least top normal.
- Vague opacity in the left apex most likely representing incidental tortuosity of the great vessels.
- Left apical mass cannot be excluded. Chest CT with IV contrast could be obtained.
CXR 07/30/2024: Large hiatal hernia, containing stomach and/or loops of bowel.
EKG
NORMAL SINUS RHYTHM
LOW VOLTAGE QRS
BORDERLINE ECG
NO PREVIOUS ECGS AVAILABLE
Total time spent today was 36 minutes for this encounter. Time includes reviewing laboratory test/imaging results, reviewing pertinent medical records, obtaining and reviewing medical history, performing an appropriate exam, ordering medications,
tests and procedures. Time also includes documentation of this encounter, coordinating patient care and communicating with other healthcare professionals. Total time does not include separately billed tests performed on this date of service.
Subjective Data
-
Date of Service:
Date of Service: July 30, 2024
Chief Complaint: Pulmonary Follow Up
Subjective:
Patient was seen and evaluated today at bedside. Afebrile overnight. She is sitting on the edge of her bed and feels well. Currently on room air breathing comfortably. Denies KAY, chest pain, nausea, fevers or chills. She says that she does have
a cough but that this is normal for her and it is not changed. She does not take nasal sprays as she does not sniffing medications into her nose.
Review of Systems
General: Other (Negative unless mentioned above)
Objective Data
Data Reviewed
Vital Signs / I&O / Oxygen:
Vital Signs
Temp Pulse Resp BP Pulse Ox
98.1 F 67 16 130/60 95
07/30/24 03:12 07/30/24 03:12 07/30/24 03:12 07/30/24 03:12 07/30/24 03:12
Intake and Output
07/29/24 07/30/24 07/31/24
06:59 06:59 06:59
Intake Total 560 / 560 1520 / 1520
Balance 560 / 560 1520 / 1520
SaO2 95
Nasal Cannula flow liters per 2
minute
Labs/Micro/Reports
Lab Data
07/28/24 16:41
07/30/24 05:53
[2024-07-30] MEDS: LOVENOX 30 MG SC (17:06)
[2024-07-30] MEDS: LIPITOR 20 MG PO (20:33)
[2024-07-30] MEDS: NORCO 7.5/325 1 TABLET PO (20:34)
[2024-07-30] MEDS: IMODIUM 2 MG PO (20:35)
[2024-07-31 03:40] VITALS: BP 132/67
[2024-07-31 06:00] VITALS: BMI 30.3
[2024-07-31 06:59] LABS: Blood Urea Nitrogen 64 mg/dl (7-17); Calcium 9.7 mg/dl (8.4-10.2); Carbon Dioxide 25 mmol/L (22-30); Chloride 106 mmol/L (98-107); Estimated Creatinine Clearance 35 ml/min; Glucose 101 mg/dl (70-99); Potassium 5.2 mmol/L (3.5-5.1); Sodium 140 mmol/L (135-145)
[2024-07-31 07:55] VITALS: BP 156/76
--- NOTE | 2024-07-31 08:44 | W.PN.HOSP.TC ---
Today's Communication/Plan
-
Discharge planning today
Assessment / Plan
Assessment / Plan
Physical exam:
General: Well Developed, Well Nourished and No Apparent Distress
HEENT: Normocephalic, Atraumatic and Moist Mucous Membranes
Respiratory: Clear to Auscultation; Negative Wheezes, Rales or Rhonchi
Cardiac: Regular Rhythm and S1/S2
GI: Soft, Nontender and Nondistended
Musculoskeletal: No Clubbing, No Cyanosis and No Edema
Neuro: Awake, Alert and Oriented
Psych: Calm
A/P:
Probable acute diastolic congestive heart failure:
Given IV Lasix evening upon admission and yesterday but holding on further diuresis until clarification
BNP not that elevated
Will re-dose as needed but cardiology does not recommend continue diuretics.
Reviewed echocardiogram
Cardiology consult appreciated
Cardiology cleared her for discharge
Hyperkalemia:
After combo given potassium went down to normal yesterday and up again.
Only minimally elevated today-Repeat Lokelma
Continue holding ARB
Repeat potassium as outpatient
Abnormal chest x-ray:
CT scan of the chest shows no mass
Initially there were noted to a CT scan of the chest but held due to renal function
VQ scan low probability of PE
Pulmonary consult appreciated
CKD:
Unclear if EMILE component
Avoid nephrotoxic
Monitor renal function
Hypertension:
Continue home antihypertensives with restrictions due to electrolytes abnormal
Hyperlipidemia:
Continue statins
Chronic back pain:
Continue pain medications
DVT prophylaxis:
Lovenox SQ
CODE STATUS:
Full code
Anticipated Discharge: Today
Subjective/Interval History
-
Date of Service: July 31, 2024
Patient doing well today. No new complaints
Objective Data
-
Labs:
Laboratory Results
07/31/24
05:47
Sodium 140
Potassium 5.2 H
Chloride 106
Carbon Dioxide 25
BUN 64 H
Creatinine 1.3 H
Glucose 101 H
Calcium 9.7
Vital Signs:
Vital Signs
Temp Pulse Resp BP Pulse Ox
98.5 F 66 20 156/76 92
07/31/24 07:55 07/31/24 07:55 07/31/24 07:55 07/31/24 07:55 07/31/24 07:55
I&O
07/30/24 07/31/24 08/01/24
06:59 06:59 06:59
Intake Total 1520 / 1520 480 / 480
Balance 1520 / 1520 480 / 480
[2024-07-31] MEDS: ASPIR LOW (ENTERIC COATED) 81 MG PO (09:04)
[2024-07-31] MEDS: LYRICA 100 MG PO (09:04)
[2024-07-31] MEDS: ORETIC 25 MG PO (09:04)
[2024-07-31] MEDS: ZYLOPRIM 100 MG PO (09:05)
[2024-07-31] MEDS: LOKELMA 5 GRAM PO (09:05)
--- NOTE | 2024-07-31 09:28 | W.PN.CD ---
Today's Communication / Plan
-
Cardiology will sign off
Please call with questions
Impression / Plan
-
Abnormal EKG
- 2nd EKG showed new T inversion but I am suspicious of lead placement error
- Repeat EKG w/o lead reversal and T inversions have resolved
- No further evaluation
Hyperkalemia
- Per hospitalist
- Off valsartan
SOB/SORIANO
- Not convinced this is heart failure
- I would not give additional loop diuretic
Abnormal CXR
- CT (w/o IV contrast) 07/28/2024: Vascular calcification, no effusion, large hiatal hernia
Mild to moderate AR
HTN
HLD
Back pain
Subjective
No complaints
Data:
Echo :
Normal LV size and function with no regional wall motion abnormalities.
LVEF is 55-60% by visual estimation.
No LVH. Stage I diastolic dysfunction suggestive of abnormal relaxation.
Normal right ventricular size and function.
Mild to moderate aortic regurgitation.
Estimated pulmonary artery pressure of 23 mmHg. Assuming a right atrial
pressure of 3 mmHg.
No prior study available for comparison.
Physical Exam
Vital Signs/Labs
Vital Signs
Temp Pulse Resp BP Pulse Ox
98.5 F 66 20 156/76 92
07/31/24 07:55 07/31/24 07:55 07/31/24 07:55 07/31/24 07:55 07/31/24 07:55
07/30/24 07/31/24 08/01/24
06:59 06:59 06:59
Actual Weight 85.304 kg 85.049 kg
07/28/24 16:41
07/31/24 05:47
Triglycerides 57 mg/dl (10-149) 07/29/24 06:33
LDL Cholesterol, Calc 44 mg/dl 07/29/24 06:33
VLDL Cholesterol, Calc 11 mg/dl (0-30) 07/29/24 06:33
HDL Cholesterol 59 mg/dl 07/29/24 06:33
Free T4 0.81 ng/dl (0.78-2.19) 07/29/24 06:33
07/28/24
16:41
[id number]-Z-Msplcbrytcc Pept 125
LAB Results
07/28/24
16:41
Troponin I 0.031
Physical Exam
Constitutional: No acute distress
Cardiovascular: Rhythm & rate is regular and Pedal edema is absent
Respiratory: Respiratory effort normal and Lungs clear to auscul.
GI: Soft and Distention absent
Data Reviewed
-
Date of Service: July 31, 2024
--- NOTE | 2024-07-31 09:55 | W.PN.PUL3 ---
Today's Communication / Plan
-
Lower extremity duplex negative for DVT
Outpatient cardiology follow-up
Outpatient pulmonary follow-up for full PFTs
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 Recommend general surgery consult to discuss treatment options - this can be done as an outpatient
Patient being prepared for discharge home today. I will arrange for outpatient office follow-up with me. She also has outpatient cardiology follow-up on 08/18/2024 with HECTOR Fuentes, at 10:40 AM. No additional recommendations at this time.
Pulmonary service will now sign off. Please reconsult if there are any additional questions/concerns, or if patient's respiratory status deteriorates.
Assessment
-
84-year-old woman who was admitted with shortness of breath, mild hypoxemia, bipedal edema. Did receive some Lasix in the emergency room. Chest x-ray with a possible left upper lobe opacity/mass. Has acute kidney injury with hyperkalemia.
We were consulted for evaluation of abnormal chest x-ray.
Abnormal chest x-ray: Possible left upper lobe lung mass
Chest x-ray also has a retrocardiac infiltrate likely hiatal hernia.
Large diaphragmatic hernia
Acute hypoxemic respiratory insufficiency - now resolved s/p lasix
Chronic shortness of breath for months
Suspected acute HFpEF exacerbation
EMILE with hyperkalemia
Chronic cough likely due to upper airway cough syndrome - can be discussed as an outpatient
Conditions present prior admission:
Hypertension
Hyperlipidemia
Gout
Chronic back pain
Assessment and plan:
Abnormal chest x-ray: Not entirely clear whether there is a left apical abnormality with this portable view.
Ok to obtain CT chest without contrast. No need to check CTA chest given low probability V/Q scan
- CT chest performed and upon my review she has an azygous lobe; and there is no mass in her left upper lobe. And she has subpleural reticular markings on her medial right lower lobe as as well the medial right upper lobe with scattered
groundglass attenuation mainly on her right lung. She has a very large hiatal hernia and this could very well be causing shortness of breath for her as she has stomach and colon in her chest cavity. Would recommend general surgery consult to
discuss treatment options for this large hiatal hernia with intrathoracic stomach and colon
-She can see surgery as an outpatient regarding treatment for this diaphragmatic hernia
-
She is no longer on any oxygen and is breathing comfortably on room air
Saturating 96%, hence no need to check for home O2
Seems like ever since she got the Lasix in the ER she has been feeling much better -this does make left-sided heart failure much more likely. Her RV did appear normal in size and function on echo
Cardiology correspondence reviewed-not strongly suspecting heart failure.
Echocardiogram performed on 07/29/2024 showing stage I diastolic dysfunction with normal RV size and function, mild as moderate AI with normal PASP and normal LV size and function with no regional WMA. LVEF 55 to 60%
- It does appear clinically that she was having CHF upon admission, however proBNP was 125 and she has a BMI of 30 so unclear if this is a falsely low number or if it is accurate
- Would still would be prudent and have her see cardiology as an outpatient
VQ scan shows no scintigraphic evidence for pulmonary embolism with normal homogenous ventilation and perfusion to the lungs. There were no significant unmatched perfusion defects.
LE duplex is negative
-
Hyperkalemia management per primary team (5.6 on 07/30/2024
-
Patient being prepared for discharge home today. I will arrange for outpatient office follow-up with me. She also has outpatient cardiology follow-up on 08/18/2024 with [facility] Fuentes, at 10:40 AM. No additional recommendations at this time.
Pulmonary service will now sign off. Thank you for allowing us to be involved in the care of this patient. Please reconsult if there are any additional questions/concerns, or if patient's respiratory status deteriorates.

Data reviewed:
CXR 07/28/2024
- Large retrocardiac density most likely representing a hiatal hernia.
- Heart and pulmonary vascularity at least top normal.
- Vague opacity in the left apex most likely representing incidental tortuosity of the great vessels.
- Left apical mass cannot be excluded. Chest CT with IV contrast could be obtained.
CXR 07/30/2024: Large hiatal hernia, containing stomach and/or loops of bowel.
EKG
NORMAL SINUS RHYTHM
LOW VOLTAGE QRS
BORDERLINE ECG
NO PREVIOUS ECGS AVAILABLE
Total time spent today was 27 minutes for this encounter. Time includes reviewing laboratory test/imaging results, reviewing pertinent medical records, obtaining and reviewing medical history, performing an appropriate exam, ordering medications,
tests and procedures. Time also includes documentation of this encounter, coordinating patient care and communicating with other healthcare professionals. Total time does not include separately billed tests performed on this date of service.
Subjective Data
-
Date of Service:
Date of Service: July 31, 2024
Chief Complaint: Pulmonary Follow Up
Subjective:
Patient seen and evaluated today at bedside (late note entry). She feels well, no chest pain, fevers or chills. No acute events reported overnight. Being prepared for discharge home today.
Review of Systems
General: Other (Negative unless mentioned above)
Objective Data
Data Reviewed
Vital Signs / I&O / Oxygen:
Vital Signs
Temp Pulse Resp BP Pulse Ox
98.5 F 66 20 156/76 92
07/31/24 07:55 07/31/24 07:55 07/31/24 07:55 07/31/24 07:55 07/31/24 08:55
Intake and Output
07/30/24 07/31/24 08/01/24
06:59 06:59 06:59
Intake Total 1520 / 1520 480 / 480
Balance 1520 / 1520 480 / 480
SaO2 92
Nasal Cannula flow liters per 2
minute
Physical Exam
General: Respiratory Distress (negative), Comfortable, Chills (negative) and Sweats (negative)
HEENT: Normocephalic and Anicteric
Cardiovascular: S1-S2 and Peripheral Edema (negative)
Respiratory: Clear, Wheeze (negative), Crackles (negative), Rhonchi (negative) and Stridor (negative)
GI: Soft, Non Distended, Non Tender and Normal Bowel Sounds
Neurology: Awake, Alert and Tremors (negative)
Skin: Warm, Dry, Cyanosis (negative) and Jaundice (negative)
Labs/Micro/Reports
Lab Data
07/28/24 16:41
07/31/24 05:47
--- NOTE | 2024-07-31 10:54 | W.DCSUMMARY ---
Discharge Summary
Discharge Data
Date of Admission: 07/28/24
Date of Discharge: 07/31/24
-
Pending Results: No
Hospital Course
Patient 84 years old female with history of hypertension, hyperlipidemia, and multiple other medical problems came into the hospital shortness of breath on exertion and peripheral edema and several other abnormalities. Patient was diuresed due to
concerns of heart failure. Cardiology and pulmonary consulted. She had echocardiogram with normal EF. Cardiology recommended no further diuresis and evaluation as outpatient. She also had VQ scan negative for PE and Doppler ultrasound of the
legs pending. She had a CT scan of the chest due to concerns for lung mass but that did not show any significant abnormality from that perspective. She did have significant hiatal hernia that she knows about. She also had some electrolyte
abnormalities with hyperkalemia and ARB was discontinued and she was given Lokelma. She is going to have a follow-up renal function and electrolytes as outpatient. Otherwise, patient hemodynamically stable and she is cleared for discharge today.
Discharge duration: 35 minutes
Discharge Plan
-
Patient Disposition: Home (Routine Discharge)
Discharge Diagnosis/Procedures: Dyspnea on exertion. Probable acute diastolic congestive heart failure. Hyperkalemia. Hiatal hernia. Chronic kidney disease.
Diet: Low Cholesterol
Activity: As tolerated
Blood Work: Please PCP to order CBC, BMP within 1 week
Specialty Instructions: Weigh Daily- Call MD for wt gain/loss 3 lbs overnight/5 lbs in 1 week
Referrals:
Haven Lr DO [Family Provider] - in less than 1 week
Avtar Cunningham MD [Active] - in four to six weeks (full PFTs on day of office visit)
Gil Villeda MD [Active] - in one to two weeks
Prescriptions:
Continued
atorvastatin 20 mg Tablet
20 mg PO HS
loperamide 2 mg Capsule
2 mg PO HS
allopurinol 100 mg Tablet
100 mg PO BID
aspirin 81 mg Tablet,Delayed Release (Dr/Ec)
81 mg PO DAILY
famotidine 20 mg Tablet
20 mg PO DAILY
hydrocodone-acetaminophen 7.5-325 mg Tablet
1 tab PO BIDPRN PRN (Reason: severe pain)
hydrocodone-acetaminophen 7.5-325 mg Tablet
1 tab PO HS
hydrochlorothiazide 25 mg Tablet
25 mg PO DAILY
pregabalin 100 mg Capsule
100 mg PO TID
Discontinued
valsartan 160 mg Tablet
160 mg PO DAILY
Discharge Orders:
Discharge Patient (As Directed); Ordered 07/31/24
Ordered By: Eh Long
Discharge Date and Time
Print Language: BERMUDIAN
[2024-07-31 11:16] VITALS: BP 155/67
--- NOTE | 2024-07-31 11:27 | CM ---
Patient for d/c today
Met patient bedside, agreeable to d/c. Spouse will transport
IMM verbally reviewed, patient given copy, copy placed on chart
Plan: Home; no needs
== END 2024-07-31 12:43 | disposition home or self-care (01) | DRG 640 ==
LOC: 4 EAST ACU 20:50
PROVIDERS: ADMITTING PHYSICIAN Internal Medicine; ATTENDING PHYSICIAN Hospitalist; CONSULT PHYSICIAN Internal Medicine Cardiovascular Disease; EMERGENCY PHYSICIAN Student in an Organized Health Care Education/Training Program; FAMILY PHYSICIAN Family Medicine; OTHER PHYSICIAN Internal Medicine Critical Care Medicine
DX: E87.5 Hyperkalemia (principal); I50.31 Acute diastolic (congestive) heart failure; I13.0 Hypertensive heart and chronic kidney disease with heart failure and stage 1 through stage 4 chronic kidney disease, or unspecified chronic kidney disease; N17.9 Acute kidney failure, unspecified; F11.20 Opioid dependence, uncomplicated; N18.9 Chronic kidney disease, unspecified; E78.00 Pure hypercholesterolemia, unspecified; G89.29 Other chronic pain; Z88.5 Allergy status to narcotic agent; Z79.82 Long term (current) use of aspirin; Z79.899 Other long term (current) drug therapy; K44.9 Diaphragmatic hernia without obstruction or gangrene; R09.02 Hypoxemia; M10.9 Gout, unspecified; R06.89 Other abnormalities of breathing
CPT/HCPCS: 71046; 71250; 78582; 80048; 80053; 80061; 82248; 82962; 83880; 84439; 84443; 84484; 85025; 85379; 93005; 93306; 93970; 96374; 97116; 97162; 99291; A9540; A9567